=== PATIENT | female | born 1995 | race Caucasian/White ===

== ENCOUNTER 2021-03-26 06:04 | Emergency (ER) | payer OTHER ==
[~2021-03-26] VITALS: Ht 165.1 cm; Wt 64.0 kg
[2021-03-26 06:07] VITALS: BP 136/83
[2021-03-26] MEDS ORDERED: ACETAMINOPHEN 325MG TABLET PO STA (06:15)
[2021-03-26] MEDS ORDERED: FAMOTIDINE 20MG TABLET PO SCH (06:15)
[2021-03-26] MEDS ORDERED: MAGNESIUM/ALUMINUM HYDROXIDE/SIMETHICONE 30ML UDC PO STA (06:15)
== END 2021-03-26 10:00 | disposition left against medical advice (07) ==
LOC: ER 06:04
DX: R10.9 Unspecified abdominal pain (principal); Z88.0 Allergy status to penicillin
CPT/HCPCS: 99283

== ENCOUNTER 2024-03-12 02:29 | Emergency (ER) | payer MEDICAID, OTHER ==
[~2024-03-12] VITALS: Ht 162.6 cm; Wt 69.0 kg
[2024-03-12 02:36] VITALS: BP 111/60; PULSE 78; RESP 16; TEMP 98.3; O2SAT 99
== END 2024-03-12 03:04 | disposition left against medical advice (07) ==
LOC: ER 02:29
DX: F41.9 Anxiety disorder, unspecified (principal); Z53.21 Procedure and treatment not carried out due to patient leaving prior to being seen by health care provider